=== PATIENT | male | born 1950 | race Caucasian/White ===

== ENCOUNTER 2023-03-14 13:12 | Emergency (ER) | payer MEDICARE, SELFPAY ==
[2023-03-14 13:18] VITALS: BP 113/74; PULSE 76; RESP 20; TEMP 37.1; O2SAT 97; BMI 30.1
--- NOTE | 2023-03-14 13:49 | CRLHL7_ITS ---
For Patients: As a result of the Century Cures Act, medical imaging exams and procedure reports are released immediately into your electronic medical record. You may view this report before your referring provider. If you have questions, please contact your health care provider. INDICATION: Suprapubic abdominal pain. Constipation. TECHNIQUE: CT abdomen and pelvis acquired with 100 cc Omnipaque 350 IV contrast. COMPARISON: None. FINDINGS: Lower chest: Scattered atelectasis. Liver: Hepatic steatosis. No suspicious masses. Gallbladder and bile ducts: Cholecystectomy. Pancreas: Unremarkable. No mass or inflammation. Spleen: Unremarkable. Normal in size. No masses. Adrenal glands: Unremarkable. No nodules. Kidneys: Mild prominence of the left collecting system without obstructing stone. No suspicious masses, stones, or hydronephrosis. GI tract: Acute sigmoid diverticulitis. No bowel obstruction. Moderate colonic stool burden. Vasculature: Abdominal aorta is normal in caliber. Mesenteric arteries are patent. Lymph nodes: No lymphadenopathy. Peritoneum/Abdominal Wall: Unremarkable. No sign of mass or infiltration. No free air or significant free fluid. Pelvis: Mildly distended bladder with circumferential wall thickening. Bones: Unremarkable for age. IMPRESSION: Acute uncomplicated sigmoid diverticulitis. No drainable fluid collections Mild prominence of the left collecting system without obstructing stone, likely reactive in the setting of adjacent sigmoid diverticulitis. Mildly distended bladder with circumferential wall thickening, likely reactive. Recommend correlation with urinalysis. Moderate colonic stool burden. Please note that all CT scans at this facility use dose modulation, iterative reconstruction, and/or weight-based dosing when appropriate to reduce radiation dose to as low as reasonably achievable. Dictated by Avila Olson MD @ 03/14/2023 3:51:25 PM (Electronically Signed)
[2023-03-14 14:09] LABS: Fecal Occult Blood* Positive (Negative)
--- NOTE | 2023-03-14 14:14 | ED.NURSE ---
Patient refused triple swab.
[2023-03-14 14:26] LABS: Lactate* 0.8 mmol/L (0.5-1.9)
[2023-03-14 14:30] LABS: Basophils Absolute Auto 0.04 K/uL (0.00-0.30); Basophils Percent Auto 0.4 % (0.0-3.0); Eosinophils Absolute Auto 0.16 K/uL (0.00-0.50); Eosinophils Percent Auto 1.6 % (0.0-7.0); Hemoglobin* 14.4 gm/dL (13.5-17.5); Immature Granulocytes Abs Auto 0.01 K/uL (0.00-0.30); Immature Granulocytes Pct Auto 0.1 %; Lymphocytes Percent Auto 16.7 % (20-44); Mean Corpuscular HGB Conc 34 gm/dL (32-36); Mean Corpuscular Hemoglobin 30 pg (26-34); Mean Corpuscular Volume 88 fL (80-100); Monocytes Percent Auto 13.5 % (0.0-11.0); Neutrophils Absolute Auto 6.96 K/uL (1.7-7.0); Neutrophils Percent Auto 67.7 % (42.0-72.0); Platelet Count* 232 K/uL (140-440); RDW Coefficient of Variation % 12.2 % (11.5-15.5); Red Blood Count 4.88 m/uL (4.30-5.90); White Blood Count* 10.28 K/uL (4.50-11.00)
[2023-03-14 14:35] LABS: Slide Review Reflex No
[2023-03-14 14:44] LABS: Chloride* 104 mmol/L (96-114); Potassium* 3.9 mmol/L (3.6-5.1); Sodium* 137 mmol/L (135-149)
[2023-03-14 14:46] LABS: Albumin* 4.2 g/dL (3.3-5.0)
[2023-03-14] MEDS: 0.9 % SODIUM CHLORIDE 1000 ml 1,000 ML IV (14:46)
[2023-03-14 14:47] LABS: Amylase* 66 U/L (18-89); Anion Gap 7 mEq/L (7-15); Blood Urea Nitrogen* 15 mg/dL (7-30); Carbon Dioxide* 26 mmol/L (20-32); Creatinine* 0.8 mg/dL (0.5-1.5); Est. Creatinine Clearance* 68.94; Estimated Glomerular Filt Rate 94 ml/min
[2023-03-14 14:47] LABS: Appearance Urine Clear (Clear); Bilirubin Urine Negative (Negative); Blood Urine Negative (Negative); Color Urine Orange (Yellow); Glucose Urine Negative (Negative); Ketones Urine Negative (Negative); Leukocyte Esterase Urine Negative (Negative); Nitrite Urine Negative (Negative); Protein Urine Negative (Negative); Specific Gravity Urine 1.025 (1.000-1.030); Urobilinogen Urine 0.2 (0.2-1.0)
[2023-03-14 14:48] LABS: Calcium* 9.1 mg/dL (8.4-10.6); Glucose* 100 mg/dL (60-115)
[2023-03-14 14:49] LABS: Alanine Aminotransferase* 23 U/L (4-50); Alkaline Phosphatase* 71 U/L (40-150); Aspartate Amino Transferase* 27 U/L (12-35); Bilirubin Direct* 0.2 mg/dL (0.0-0.5); Bilirubin Total* 1.3 mg/dL (0.1-1.5); Lipase* 59 U/L (23-300)
[2023-03-14 14:50] LABS: C Reactive Protein* 7.4 mg/dL (0.5-1.0)
[2023-03-14 15:04] LABS: RBC Urine 0-2 (0-2); Squamous Epithelial Cell Urine Few (None-Few); WBC Urine 0-2 (0-5)
[2023-03-14 15:05] LABS: Procalcitonin* 0.07 ng/mL (<0.50)
--- NOTE | 2023-03-14 15:14 | ED.ABDPAIN ---
HPI - Abdominal Pain General Date Seen: 03/14/23 Chief Complaint: Constipation Stated Complaint: Bowel clrcro-hqdyjkq-diai bm 3 days ago Time Seen by Provider: 03/14/23 13:31 Source: patient and family Mode of arrival: ambulatory Limitations: no limitations History of Present Illness HPI narrative: Patient is a 73-year-old gentleman who presents here with abdominal fullness and discomfort for the last for 4-5 days he describes as suprapubic re area. He has been passing some gas slightly, but not on a consistent basis is wondering if he has any constipation despite having no history of this in the past. He does get yearly fecal testing for screening. But they were unable to do colonoscopy is due very tight colon at [facility]. No history of cancer, does have a history of a previous cholecystectomy done laparoscopically here at our institution. No history of fevers chills or sweats, he is eating a little bit less but eating still no history of cough cold-like symptoms weight loss, or personal history of malignancy he comes in with his daughter. Does not drink a lot of alcohol if any. [place] in [place] MD elicited complaint: abdominal pain Pertinent past history: none Onset (ago): day(s) Location: suprapubic Severity: moderate Quality: fullness Migration to: no migration Exacerbating factors: nothing Relieving factors: nothing Associated symptoms: denies other symptoms Related Data Allergies Allergy/AdvReac Type Severity Reaction Status Date / Time No Known Drug Allergies Allergy Verified 03/14/23 15:21 Review of Systems Status of ROS Reports: 10 or more systems reviewed and unremarkable except as noted in History and below PFSH PFSH Social History Non-prescribed substance use: denies use Exam Narrative: Exam Narrative: On examination patient is in no apparent distress he is pleasant alert he is able to speak to me normally, pupils equal round reactive to light there is no scleral icterus redness TMs are normal oropharynx normal there is no adenopathy anterior posterior chains his neck is supple full range of motion is listed oropharynx is normal, chest is good air entry bilateral with no wheezing crackles noted heart sounds no clicks murmurs or gallops his abdomen is full and slightly distended, no peritoneal signs some mild tenderness is noted the suprapubic, bilaterally in the lower quadrants, normal male genitalia, no evidence of hernias, moves all extremities independently well neurologically intact his upper lower extremities skin reveals no petechiae rashes, muscle bulk seems adequate. Const: Vital Signs, click to edit/add: Vital Signs - 24 hr 03/14/23 13:18 Temperature 98.8 F Pulse Rate [Pulse Oximeter] 76 Respiratory Rate 20 Blood Pressure [Ri ght Upper Arm] 113/74 Pulse Oximetry 97 Oxygen Delivery Me thod Room Air Documenting provider has reviewed patient's vital signs: yes Course Course ED Course: Discussed with patient family, the diagnosis diverticulitis, it is uncomplicated no evidence of perforation abscess is seen, we went over the risks benefits and side effects of antibiotics, given it is the 1st time, he is fairly symptomatic I would recommend going without antibiotics here. Use of Tylenol for the discomfort and come back if worsening, follow-up primary care in 10 days. Vital Signs Vital signs: Initial Vital Signs Temperature 98.8 F 03/14/23 13:18 Temperature Source Temporal Artery Scan 03/14/23 13:18 Pulse Rate 76 03/14/23 13:18 Respiratory Rate 20 03/14/23 13:18 Blood Pressure 113/74 03/14/23 13:18 Blood Pressure Mean 87 03/14/23 13:18 Pulse Oximetry 97 03/14/23 13:18 Oxygen Delivery Method Room Air 03/14/23 13:18 Vital Signs Temperature 98.8 F 03/14/23 13:18 Pulse Rate 76 03/14/23 13:18 Respiratory Rate 20 03/14/23 13:18 Blood Pressure 113/74 03/14/23 13:18 Pulse Oximetry 97 03/14/23 13:18 Oxygen Delivery Method Room Air 03/14/23 13:18 Temperature 98.8 F 03/14/23 13:18 Pulse Rate 76 03/14/23 13:18 Respiratory Rate 20 03/14/23 13:18 Blood Pressure 113/74 03/14/23 13:18 Pulse Oximetry 97 03/14/23 13:18 Oxygen Delivery Method Room Air 03/14/23 13:18 Medications Administered Medications: Discontinued Medications Generic Name Dose Route Start Last Admin Trade Name Freq PRN Reason Stop Dose Admin Sodium Chloride 1,000 mls @ 1,000 mls/hr 03/14/23 14:00 03/14/23 16:07 0.9 % Sodium Chloride 1000 Ml IV 03/14/23 14:59 Infused .Q1H GAURANG Infusion MDM - Abdominal Pain MDM Narrative Medical decision making narrative: During this evaluation of this patient I considered multiple differential diagnosis is which included the life-threatening such as appendicitis, aortic aneurysm, mesenteric ischemia, bowel perforation, volvulus, and bowel obstruction. Other differential diagnosis is include but are not limited to cholecystitis, pancreatitis, hepatitis, gastritis, GERD, diverticulitis, peptic ulcer disease, pyelonephritis/UTI, renal colic/stone, testicular torsion as well as other acute scrotal processes, inflammatory bowel disease, as well as other etiologies Medical Records Attestation: I reviewed the patient's medical records. Lab Data Attestation: I reviewed the patient's lab results. Labs: Lab Results 03/14/23 03/14/23 03/14/23 Range/Units 14:10 14:21 Unknown WBC 10.28 (4.50-11.00) K/uL RBC 4.88 (4.30-5.90) m/uL Hgb 14.4 (13.5-17.5) gm/dL Hct 43.0 (37.0-53.0) % MCV 88 (80-100) fL MCH 30 (26-34) pg MCHC 34 (32-36) gm/dL RDW Coeff of [place] 12.2 (11.5-15.5) % Plt Count 232 (140-440) K/uL Neut % (Auto) 67.7 (42.0-72.0) % Lymph % (Auto) 16.7 L (20-44) % [place] % (Auto) 13.5 H (0.0-11.0) % Eos % (Auto) 1.6 (0.0-7.0) % Baso % (Auto) 0.4 (0.0-3.0) % Neut # (Auto) 6.96 (1.7-7.0) K/uL Lymph # (Auto) 1.70 (0.90-2.90) K/uL [place] # (Auto) 1.40 H (0.00-0.90) K/UL Eos # (Auto) 0.16 (0.00-0.50) K/uL Baso # (Auto) 0.04 (0.00-0.30) K/uL Abs Immat Gran (auto) 0.01 (0.00-0.30) K/uL Imm/Tot Granulo (auto) 0.1 % Sodium 137 (135-149) mmol/L Potassium 3.9 (3.6-5.1) mmol/L Chloride 104 (96-114) mmol/L Carbon Dioxide 26 (20-32) mmol/L Anion Gap 7 (7-15) mEq/L BUN 15 (7-30) mg/dL Creatinine 0.8 (0.5-1.5) mg/dL Estimated Creat Clear 68.94 Estimated GFR 94 ml/min Glucose 100 (60-115) mg/dL Lactate 0.8 (0.5-1.9) mmol/L Calcium 9.1 (8.4-10.6) mg/dL Total Bilirubin 1.3 (0.1-1.5) mg/dL Direct Bilirubin 0.2 (0.0-0.5) mg/dL AST 27 (12-35) U/L ALT 23 (4-50) U/L Alkaline Phosphatase 71 (40-150) U/L C-Reactive Protein 7.4 H (0.5-1.0) mg/dL Total Protein 7.0 (6.0-8.3) g/dL Albumin 4.2 (3.3-5.0) g/dL Amylase 66 (18-89) U/L Lipase 59 (23-300) U/L Procalcitonin 0.07 (<0.50) ng/mL Urine Color [place] A (Yellow) Urine Appearance Clear (Clear) Urine pH 6.0 (5.0-8.5) Ur Specific [place] 1.025 (1.000-1.030) Urine Protein Negative (Negative) Urine Glucose (UA) Negative (Negative) Urine Ketones Negative (Negative) Urine Blood Negative (Negative) Urine Nitrite Negative (Negative) Urine Bilirubin Negative (Negative) Urine Urobilinogen 0.2 (0.2-1.0) Ur Leukocyte Esterase Negative (Negative) Urine RBC 0-2 (0-2) Urine WBC 0-2 (0-5) Ur Squamous Epith Cells Few (None-Few) Urine Bacteria None (None) Stool Occult Blood Positive (Negative) Imaging Data CT scan - abdomen: Attestation: I have reviewed the pertinent imaging results. My impression: Sigmoid diverticulitis without perforation or abscess Radiologist's impression: Patient: JACOB FLYNN Facility:[facility] Patient ID:?[id number] Site Patient ID:?[id number]. Site :?[id number] Study:?CT Abdomen/Pelvis W/ 103CC [id number]/1/2024 3:30:53 PM Ordering Physician:Lali Martinez Final Report: INDICATION: Suprapubic abdominal pain. Constipation. TECHNIQUE: CT abdomen and pelvis acquired with 100 cc Omnipaque 350 IV contrast. COMPARISON: None. FINDINGS: Lower chest: Scattered atelectasis. Liver: Hepatic steatosis. No suspicious masses. Gallbladder and bile ducts: Cholecystectomy. Pancreas: Unremarkable. No mass or inflammation. Spleen: Unremarkable. Normal in size. No masses. Adrenal glands: Unremarkable. No nodules. Kidneys: Mild prominence of the left collecting system without obstructing stone. No suspicious masses, stones, or hydronephrosis. GI tract: Acute sigmoid diverticulitis. No bowel obstruction. Moderate colonic stool burden. Vasculature: Abdominal aorta is normal in caliber. Mesenteric arteries are patent. Lymph nodes: No lymphadenopathy. Peritoneum/Abdominal Wall: Unremarkable. No sign of mass or infiltration. No free air or significant free fluid. Pelvis: Mildly distended bladder with circumferential wall thickening. Bones: Unremarkable for age. IMPRESSION: Acute uncomplicated sigmoid diverticulitis. No drainable fluid collections Mild prominence of the left collecting system without obstructing stone, likely reactive in the setting of adjacent sigmoid diverticulitis. Mildly distended bladder with circumferential wall thickening, likely reactive. Recommend correlation with urinalysis. Moderate colonic stool burden. Please note that all CT scans at this facility use dose modulation, iterative reconstruction, and/or weight-based dosing when appropriate to reduce radiation dose to as low as reasonably achievable. Dictated by Avila Olson MD @ 03/14/2023 3:51:25 PM (Electronic Signature) Discharge Plan Discharge Clinical Impression: Diverticulitis Patient Disposition: Home w/ Parent or Adult Condition: Stable Instructions: Diverticulitis (DC), Diverticulitis Diet (ED) Additional Instructions: Home rest antibiotics is indicated, Tylenol 1 g 2 extra-strength every 8 hours, for pain, increase diet, start with fluids, soup, yogurt and then increase slowly over 4-5 days, return here if increasing abdominal pain fevers chills nausea vomiting. I think following up with your regular physician once her antibiotics is done is a good idea to talk about this also. Activity Level: Light activity Discharge Diet: Full Liquid Follow Up/Referrals: Daron Keane MD [Staff Physician] - Silvano Lindsay MD [Staff Physician] - Gabriella Tuttle DO [Primary Care Provider] - Stand Alone Forms: [employer] Info Instructions
== END 2023-03-14 16:41 | disposition home or self-care (01) ==
PROVIDERS: Emergency Provider Family Medicine; PCP Family Medicine
DX: K57.92 Diverticulitis of intestine, part unspecified, without perforation or abscess without bleeding (principal)
CPT/HCPCS: 36415; 74177; 80048; 80076; 81001; 82150; 82270; 83605; 83690; 84145; 85025; 86140; 87631; 99284; J7030; Q9967

== ENCOUNTER 2023-03-24 16:14 | Emergency (ER) | payer MEDICARE, SELFPAY ==
[2023-03-24 16:18] VITALS: BP 130/74; PULSE 56; RESP 18; TEMP 36.3; O2SAT 97
--- NOTE | 2023-03-24 17:24 | ED_ITS ---
HPI - Abdominal Pain General Time Seen by Provider: 17:25 Date Seen: 03/24/23 Chief Complaint: Abdominal Pain Stated Complaint: Diverticulitis diagnosis-meds gone and pain back Time Seen by Provider: 03/24/23 17:24 Source: patient and RN notes reviewed Mode of arrival: ambulatory Limitations: no limitations History of Present Illness HPI narrative: This 73-year-old male is coming in with worsening left lower quadrant abdominal pain since last night in the setting of known diverticulitis. Patient was in the ER on March 14, his note is reviewed. He had CT confirmed acute uncomplicated sigmoid diverticulitis. There was no abscess or fluid collections noted. [place] [address], C reactive protein 7.4. He was treated with Augmentin, completed his last dose this morning. He is still eating, no change in appetite, no nausea or vomiting. Throughout the course of treatment his bowel habits were pretty much normal. This morning after the pain returned, did have 2 smaller bowel movements that seemed like they were difficult to pass. He denies any blood in his stool. This is his 1st episode of diverticulitis. He has not noted any fevers or sweats , no chills. MD elicited complaint: abdominal pain Pertinent past history: diverticulitis Related Data Previous Rx's Medication Instructions Recorded ciprofloxacin HCl 500 mg tablet 250 mg (1/2 x 500 mg) PO BID #19 03/24/23 tabs metronidazole 500 mg tablet 500 mg PO TID #29 tabs 03/24/23 Allergies Allergy/AdvReac Type Severity Reaction Status Date / Time No Known Drug Allergies Allergy Verified 03/24/23 16:21 Review of Systems Status of ROS Reports: 6 or more systems reviewed and unremarkable except as noted in History and below PFSH PFS Social History Non-prescribed substance use: denies use Exam Const: Vital Signs, click to edit/add: Vital Signs - 24 hr 03/24/23 16:18 Temperature 97.4 F L Pulse Rate [Pulse Oximeter] 56 L Respiratory Rate 18 Blood Pressure [Ri ght Upper Arm] 130/74 Pulse Oximetry 97 Oxygen Delivery Me thod Room Air This 73-year-old male is ambulatory into the ED of his own accord. He is alert, interactive, no apparent distress. Sclera clear, face atraumatic, able speak in complete sentences. Lungs are clear without wheeze or crackles. CV regular rate and rhythm no murmur, normal S1-S2, no S3-S4. Abdomen is soft, nondistended, bowel sounds are present. He has definite left lower quadrant tenderness with some guarding, no noted rebound. I do not feel any mass. Documenting provider has reviewed patient's vital signs: yes Course Course ED Course: Patient is and I have discussed plan of care. He obviously needs imaging done of his abdomen looking for complications of diverticulitis. We have discussed that perhaps the course of oral antibiotics was not sufficient, he could have developed complications such as perforation or abscess development. It is possible he may need a change of antibiotics and extended antibiotics with a different course. we will place an IV, give 500 mL normal saline to help with hydration from the IV contrast. He will have appropriate labs drawn as well for comparison from prior. He denies any nausea at this time, declines any need for any pain management. Reevaluation(s) Time of Reevaluation #1: 19:19 Reevaluation #1: have reviewed with patient and his his CT scan. Interestingly he has a new area of acute uncomplicated diverticulitis of the proximal sigmoid colon. There is no evidence of perforation or abscess. The previously seen inflammation the mid sigmoid colon has near complete resolution of inflammation, still mild residual wall thickening in this region. Reviewed with him that I recommend we switch to Cipro and Flagyl orally. I do not think he requires hospitalization based on his presentation, labs and CT findings. We discussed having colonoscopy in 6-8 weeks when this is completely resolved, he shared with me that he was told by [facility] that he should never have a colonoscopy. He has a history of acromegaly and reportedly had changed architecture of his colon. He states that the turns were very tight, they almost perforated his colon per report. Did review with him with this information, would recommend he be referred to Colorectal or GI specialist, there are other imaging modalities such as CT colonoscopy which could be considered. Ultimately defer to specialty services on this. He does have an appointment next week for follow-up with Dr. Lindsay, he should keep this and he can get him referred appropriately. Vital Signs Vital signs: Initial Vital Signs Temperature 97.4 F L 03/24/23 16:18 Temperature Source Temporal Artery Scan 03/24/23 16:18 Pulse Rate 56 L 03/24/23 16:18 Pulse Rhythm Regular 03/24/23 16:18 Respiratory Rate 18 03/24/23 16:18 Blood Pressure 130/74 03/24/23 16:18 Blood Pressure Mean 92 03/24/23 16:18 Blood Pressure Position Sitting 03/24/23 16:18 Pulse Oximetry 97 03/24/23 16:18 Oxygen Delivery Method Room Air 03/24/23 16:18 Vital Signs Temperature 97.4 F L 03/24/23 16:18 Pulse Rate 56 L 03/24/23 16:18 Respiratory Rate 18 03/24/23 16:18 Blood Pressure 130/74 03/24/23 16:18 Pulse Oximetry 97 03/24/23 16:18 Oxygen Delivery Method Room Air 03/24/23 16:18 Temperature 97.4 F L 03/24/23 16:18 Pulse Rate 56 L 03/24/23 16:18 Respiratory Rate 18 03/24/23 16:18 Blood Pressure 130/74 03/24/23 16:18 Pulse Oximetry 97 03/24/23 16:18 Oxygen Delivery Method Room Air 03/24/23 16:18 MDM - Abdominal Pain Differential Diagnosis Differential diagnosis: Likely abdominal pain and diverticulitis Lab Data Attestation: I reviewed the patient's lab results. Labs: Lab Results 03/24/23 Range/Units 18:00 WBC 10.64 (4.50-11.00) K/uL RBC 4.98 (4.30-5.90) m/uL Hgb 14.5 (13.5-17.5) gm/dL Hct 43.9 (37.0-53.0) % MCV 88 (80-100) fL MCH 29 (26-34) pg MCHC 33 (32-36) gm/dL RDW Coeff of [place] 12.3 (11.5-15.5) % Plt Count 267 (140-440) K/uL Neut % (Auto) 68.9 (42.0-72.0) % Lymph % (Auto) 18.1 L (20-44) % [place] % (Auto) 9.1 (0.0-11.0) % Eos % (Auto) 3.3 (0.0-7.0) % Baso % (Auto) 0.5 (0.0-3.0) % Neut # (Auto) 7.33 H (1.7-7.0) K/uL Lymph # (Auto) 1.90 (0.90-2.90) K/uL [place] # (Auto) 1.00 H (0.00-0.90) K/UL Eos # (Auto) 0.35 (0.00-0.50) K/uL Baso # (Auto) 0.05 (0.00-0.30) K/uL Abs Immat Gran (auto) 0.01 (0.00-0.30) K/uL Imm/Tot Granulo (auto) 0.1 % Sodium 140 (135-149) mmol/L Potassium 4.2 (3.6-5.1) mmol/L Chloride 105 (96-114) mmol/L Carbon Dioxide 27 (20-32) mmol/L Anion Gap 8 (7-15) mEq/L BUN 15 (7-30) mg/dL Creatinine 0.9 (0.5-1.5) mg/dL Estimated GFR 91 ml/min Glucose 95 (60-115) mg/dL Lactate 0.8 (0.5-1.9) mmol/L Calcium 9.4 (8.4-10.6) mg/dL C-Reactive Protein 5.0 H (0.5-1.0) mg/dL Imaging Data CT scan - abdomen: Attestation: I have reviewed the pertinent imaging results. Radiologist's impression: Patient: JACOB FLYNN Facility:?[facility] Patient ID:?[id number] Site Patient ID:?[id number]. Site :?[id number] Study:?CT Abdomen/Pelvis W/IV-03/24/2023 6:18:52 PM Ordering Physician:?Eddy Kolb Final Report: INDICATION: Worsening pain with known diverticulitis. TECHNIQUE: CT of the abdomen and pelvis acquired with 98 cc Isovue 370 IV contrast. Coronal and sagittal reconstructions. COMPARISON: CT of the abdomen and pelvis 03/14/2023. FINDINGS: Liver: Diffuse hepatic steatosis. No focal liver lesions. Hepatic and portal veins are patent. Gallbladder and bile ducts: Cholecystectomy. No biliary dilation. Spleen: Unremarkable. Pancreas: Unremarkable. Adrenal glands: Unremarkable. Kidneys, Ureters, and Bladder: Symmetric enhancement. Subcentimeter hypodensity in the lower pole of the left kidney is too small to characterize. No right hydronephrosis or ureteral dilation. Stable mild left renal pelvocaliectasis. No dilation of the left ureter. No obstructing urinary calculi identified. No bladder wall thickening. Reproductive structures: Nonenlarged prostate gland with calcifications. GI tract/Peritoneum: No small bowel dilation. Moderate amount of stool throughout the colon. Colonic diverticulosis. Near complete resolution of previously seen inflammation in the mid sigmoid colon, with mild residual wall thickening in this region. There is new short-segment wall thickening of the proximal sigmoid colon with surrounding inflammatory fat stranding compatible with acute diverticulitis. Trace free fluid in the pelvis. No intraperitoneal free air or evidence of abscess. Negative appendix. Vasculature: Abdominal aorta is normal in caliber. Mesenteric arteries are patent. Lymph nodes: No lymphadenopathy. Abdominal wall: Tiny fat containing umbilical hernia. Bones: Degenerative changes of the spine. 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 Lower chest: Stable 3 mm noncalcified pulmonary nodule in the posterior right lower lobe (series 3, image 17). Calcified granuloma posteromedial left lower lobe. The lung bases are otherwise clear. IMPRESSION: 1. Acute uncomplicated diverticulitis of the proximal sigmoid colon. This is a new location compared to prior exam. No evidence of perforation or abscess. 2. Near complete resolution of previously seen inflammation in the mid sigmoid colon. 3. Stable mild left renal pelvocaliectasis without obstructing calculi. 4. Diffuse hepatic steatosis. Please note that all CT scans at this facility use dose modulation, iterative reconstruction, and/or weight-based dosing when appropriate to reduce radiation dose to as low as reasonably achievable. Dictated by Maggy Fatima MD @ 03/24/2023 7:02:44 PM (Electronic Signature) Discharge Plan Discharge Clinical Impression: Sigmoid diverticulitis Patient Disposition: Home, Self-Care Condition: Stable Instructions: Diverticulitis (ED), Diverticulitis Diet (ED) Additional Instructions: continue antibiotics, next dose due tomorrow morning, follow-up prescription instructions. If you develop increasing abdominal pain, have fevers or vomiting associated with this, do need to be re-evaluated. Follow the diverticulitis diet handout in the acute phase of your diverticulitis. Please keep follow-up clinic appointment scheduled for next week. You are likely going to need to be referred to a specialist given your history of failed colonoscopy. Can talk to Dr. Lindsay further about this. Activity Level: Activity as Tolerated Prescriptions: New ciprofloxacin HCl 500 mg tablet 250 mg PO BID Qty: 19 0RF metronidazole 500 mg tablet 500 mg PO TID Qty: 29 0RF Follow Up/Referrals: Gabriella Tuttle DO [Primary Care Provider] - Stand Alone Forms: [employer] Info Instructions
--- NOTE | 2023-03-24 17:34 | CRLHL7_ITS ---
For Patients: As a result of the Century Cures Act, medical imaging exams and procedure reports are released immediately into your electronic medical record. You may view this report before your referring provider. If you have questions, please contact your health care provider. INDICATION: Worsening pain with known diverticulitis. TECHNIQUE: CT of the abdomen and pelvis acquired with 98 cc Isovue 370 IV contrast. Coronal and sagittal reconstructions. COMPARISON: CT of the abdomen and pelvis 03/14/2023. FINDINGS: Liver: Diffuse hepatic steatosis. No focal liver lesions. Hepatic and portal veins are patent. Gallbladder and bile ducts: Cholecystectomy. No biliary dilation. Spleen: Unremarkable. Pancreas: Unremarkable. Adrenal glands: Unremarkable. Kidneys, Ureters, and Bladder: Symmetric enhancement. Subcentimeter hypodensity in the lower pole of the left kidney is too small to characterize. No right hydronephrosis or ureteral dilation. Stable mild left renal pelvocaliectasis. No dilation of the left ureter. No obstructing urinary calculi identified. No bladder wall thickening. Reproductive structures: Nonenlarged prostate gland with calcifications. GI tract/Peritoneum: No small bowel dilation. Moderate amount of stool throughout the colon. Colonic diverticulosis. Near complete resolution of previously seen inflammation in the mid sigmoid colon, with mild residual wall thickening in this region. There is new short-segment wall thickening of the proximal sigmoid colon with surrounding inflammatory fat stranding compatible with acute diverticulitis. Trace free fluid in the pelvis. No intraperitoneal free air or evidence of abscess. Negative appendix. Vasculature: Abdominal aorta is normal in caliber. Mesenteric arteries are patent. Lymph nodes: No lymphadenopathy. Abdominal wall: Tiny fat containing umbilical hernia. Bones: Degenerative changes of the spine. 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 Lower chest: Stable 3 mm noncalcified pulmonary nodule in the posterior right lower lobe (series 3, image 17). Calcified granuloma posteromedial left lower lobe. The lung bases are otherwise clear. IMPRESSION: 1. Acute uncomplicated diverticulitis of the proximal sigmoid colon. This is a new location compared to prior exam. No evidence of perforation or abscess. 2. Near complete resolution of previously seen inflammation in the mid sigmoid colon. 3. Stable mild left renal pelvocaliectasis without obstructing calculi. 4. Diffuse hepatic steatosis. Please note that all CT scans at this facility use dose modulation, iterative reconstruction, and/or weight-based dosing when appropriate to reduce radiation dose to as low as reasonably achievable. Dictated by Maggy Fatima MD @ 03/24/2023 7:02:44 PM (Electronically Signed)
[2023-03-24] MEDS: 0.9 % SODIUM CHLORIDE 500 ML 500 ML IV (17:52)
[2023-03-24 18:08] LABS: Lactate* 0.8 mmol/L (0.5-1.9)
[2023-03-24 18:12] LABS: Basophils Absolute Auto 0.05 K/uL (0.00-0.30); Basophils Percent Auto 0.5 % (0.0-3.0); Eosinophils Absolute Auto 0.35 K/uL (0.00-0.50); Eosinophils Percent Auto 3.3 % (0.0-7.0); Hematocrit 43.9 % (37.0-53.0); Hemoglobin* 14.5 gm/dL (13.5-17.5); Immature Granulocytes Abs Auto 0.01 K/uL (0.00-0.30); Immature Granulocytes Pct Auto 0.1 %; Lymphocytes Percent Auto 18.1 % (20-44); Mean Corpuscular HGB Conc 33 gm/dL (32-36); Mean Corpuscular Hemoglobin 29 pg (26-34); Mean Corpuscular Volume 88 fL (80-100); Monocytes Percent Auto 9.1 % (0.0-11.0); Neutrophils Absolute Auto 7.33 K/uL (1.7-7.0); Neutrophils Percent Auto 68.9 % (42.0-72.0); Platelet Count* 267 K/uL (140-440); RDW Coefficient of Variation % 12.3 % (11.5-15.5); Red Blood Count 4.98 m/uL (4.30-5.90); White Blood Count* 10.64 K/uL (4.50-11.00)
[2023-03-24 18:24] LABS: Slide Review Reflex No
[2023-03-24 18:25] LABS: Chloride* 105 mmol/L (96-114); Potassium* 4.2 mmol/L (3.6-5.1); Sodium* 140 mmol/L (135-149)
[2023-03-24 18:27] VITALS: PULSE 50; O2SAT 98
[2023-03-24 18:27] LABS: Creatinine* 0.9 mg/dL (0.5-1.5); Estimated Glomerular Filt Rate 91 ml/min
[2023-03-24 18:28] LABS: Anion Gap 8 mEq/L (7-15); Blood Urea Nitrogen* 15 mg/dL (7-30); Calcium* 9.4 mg/dL (8.4-10.6); Carbon Dioxide* 27 mmol/L (20-32); Glucose* 95 mg/dL (60-115)
[2023-03-24 18:30] VITALS: PULSE 50; O2SAT 99
[2023-03-24 18:45] VITALS: PULSE 56; O2SAT 97
[2023-03-24] MEDS: CIPROFLOXACIN 500 MG TABLET PO (19:34)
[2023-03-24] MEDS: metroNIDAZOLE 500 MG TABLET PO (19:34)
== END 2023-03-24 19:48 | disposition home or self-care (01) ==
PROVIDERS: Emergency Provider Family Medicine; PCP Family Medicine
DX: K57.32 Diverticulitis of large intestine without perforation or abscess without bleeding (principal)
CPT/HCPCS: 36415; 74177; 80048; 83605; 85025; 86140; 94761; 99284; A9270; J7030; Q9967

== ENCOUNTER 2023-05-24 08:06 | Outpatient (CLI) | payer MEDICARE, SELFPAY | END 2023-05-24 08:07 | disposition home or self-care (01) | LOC: NFLDREF 06-06 07:11 | PROVIDERS: PCP Family Medicine; Referring Provider Family Medicine; Visit Provider Family Medicine | DX: E78.2 Mixed hyperlipidemia (principal); Z12.5 Encounter for screening for malignant neoplasm of prostate | CPT/HCPCS: 80061; G0103 ==

== ENCOUNTER 2023-08-21 03:30 | Emergency (ER) | payer MEDICARE, SELFPAY ==
[2023-08-21 03:38] VITALS: BP 156/80; PULSE 54; RESP 16; TEMP 36.5; O2SAT 96; BMI 30.9
--- NOTE | 2023-08-21 04:21 | CRLHL7_ITS ---
For Patients: As a result of the Century Cures Act, medical imaging exams and procedure reports are released immediately into your electronic medical record. You may view this report before your referring provider. If you have questions, please contact your health care provider. Indication: Left-sided abdominal pain, history of sigmoid diverticulitis Technique: Volumetric multidetector CT images of the abdomen and pelvis were obtained after the administration of intravenous contrast. 103 cc Isovue 370 low osmolar intravenous contrast Comparison: None available. Findings: There is basilar atelectasis and parenchymal scar. The liver is enlarged with moderate hepatomegaly and hepatic steatosis. There is no focal abnormality. The portal vein is patent. Prior cholecystectomy. There is no significant common biliary ductal dilatation or abrupt cut off. The spleen is normal in enhancement and size. The stomach and duodenum are grossly unremarkable. The pancreas is normal in enhancement without significant atrophy. The adrenal glands are unremarkable. There is left-sided hydronephrosis and hydroureter with demonstration of focal radiopaque likely faintly calcified calculus just at the ureteropelvic junction measuring up to 6.9 millimeters. No evidence of obvious distal radiopaque calculus. There is moderate stool seen throughout the proximal colon with distal colonic diverticulosis. There is a decompressed appearance of the distal descending and proximal sigmoid colon which may obscure subtle inflammatory changes. No overt pericolonic inflammation is identified. The appendix is unremarkable. There is no significant mesenteric, retroperitoneal, or pelvic sidewall lymph nodes. The aorta is nonaneurysmal. There is no significant atherosclerotic disease appreciated. The solid pelvic viscera are grossly unremarkable. There is no free fluid or free air. There is a small fat containing umbilical hernia. The lumbar vertebral body heights are grossly maintained with mild multilevel degenerative disc disease. There is trace anterolisthesis of L5 on S1. Impression: Left-sided hydronephrosis with demonstration of a 6.9 millimeter faintly calcified calculus just at the left ureteropelvic junction. Distal colonic diverticulosis with somewhat decompressed appearance of the colon which may obscure low-grade inflammatory change. Double Hepatomegaly and hepatic steatosis without focal abnormality. Please note that all CT scans at this facility use dose modulation, iterative reconstruction, and/or weight-based dosing when appropriate to reduce radiation dose to as low as reasonably achievable. Dictated by Garry Pulliam MD @ 08/21/2023 5:58:50 AM (Electronically Signed)
--- NOTE | 2023-08-21 04:24 | ED_ITS ---
HPI - General Adult General Chief complaint: Abdominal Pain Stated complaint: Not feeling well Time Seen by Provider: 08/21/23 03:54 Source: patient and family Mode of arrival: ambulatory Limitations: no limitations History of Present Illness HPI narrative: 73-year-old male with prior history of diverticulitis presents to the emergency department with left upper quadrant abdominal pain that radiates into the left posterior back. No fevers. No obvious trauma or injury but states that he was pulling a difficult calf from have for with Ruthann presentations this afternoon but did not have any fall or abdominal trauma with that exertion. Pain seemed to start mid afternoon, he tried taking 2 aspirin at around 6:00 p.m. with no significant improvement. His pain is worsening, unable to sleep. He is nauseated but has not had vomiting. Bowel movements have been regular, no bloody stools. Reports that he had an episode of diverticulitis back in March and did have a subsequent colonoscopy this April and states that that was normal. Reports an uncomplicated cholecystectomy 2 years ago but no other abdominal surgeries. No fever associated with this. No recent changes in medications, pertinent travel. ROS is notable for the abdominal symptoms as described above only, otherwise denies times 12 systems. Past medical history benign per his report, no major long-term health problems or prescription medications. Was told he had a left bundle branch block at the time of the colonoscopy but denies need for further follow-up. Nonsmoker. No anticoagulants. Related Data Home Medications ?Medication ?Instructions ?Recorded ?Confirmed cholecalciferol (vitamin D3) 50 2,000 unit PO DAILY 03/30/23 05/16/23 mcg (2,000 unit) tablet NAC+zinc K2+D3 quercetain & PO QDAY 05/16/23 05/16/23 sarracenia fluticasone propionate 50 1 spray intranasal QDAY PRN 05/16/23 05/16/23 mcg/actuation nasal spray,suspension mv-mn-folic 200 mcg-vit K 15 cap PO 05/16/23 05/16/23 mcg-lutein 5 mg-zeaxanthin 1 mg capsule (PreserVision AREDS 2 Plus Multivit) olopatadine 0.2 % eye drops 1 drp ophthalmic (eye) QDAY 05/16/23 05/16/23 (Pataday Once Daily Relief) ec-[id number]-fish oil-vit D3 300 cap PO 05/16/23 05/16/23 mg-1,000 mg-1,000 unit capsule (Fish Oil-Vit D3) Previous Rx's ?Medication ?Instructions ?Recorded ketorolac 10 mg tablet 10 mg PO Q6H PRN pain 1 day #20 08/21/23 tabs tamsulosin 0.4 mg capsule (Flomax) 0.4 mg PO DAILY #30 caps 08/21/23 Allergies Allergy/AdvReac Type Severity Reaction Status Date / Time morphine Allergy Unknown Vomiting Verified 08/21/23 05:28 Opioids - Morphine Analogues Allergy Unknown Vomiting Verified 08/21/23 05:28 [facility] Medical History History of TIA (transient ischemic attack) ?Z86.73 - Personal history of transient ischemic attack (TIA), and cerebral infarction without residual deficits (ICD-10) History of melanoma ?Z85.820 - Personal history of malignant melanoma of skin (ICD-10) Sigmoid diverticulitis (03/14/23) ?K57.32 - Diverticulitis of large intestine without perforation or abscess without bleeding (ICD-10) Hearing loss of both ears ?H91.93 - Unspecified hearing loss, bilateral (ICD-10) Macular degeneration ?H35.30 - Unspecified macular degeneration (ICD-10) History of vitamin D deficiency ?Z86.39 - Personal history of other endocrine, nutritional and metabolic disease (ICD-10) Mixed hyperlipidemia ?E78.2 - Mixed hyperlipidemia (ICD-10) Hepatic steatosis ?K76.0 - Fatty (change of) liver, not elsewhere classified (ICD-10) ANTHONY (obstructive sleep apnea) ?G47.33 - Obstructive sleep apnea (adult) (pediatric) (ICD-10) BPH (benign prostatic hyperplasia) ?N40.0 - Benign prostatic hyperplasia without lower urinary tract symptoms (ICD-10) Acromegaly ?E22.0 - Acromegaly and pituitary gigantism (ICD-10) Surgical History History of pituitary surgery (1978) ?Z98.890 - Other specified postprocedural states (ICD-10) Hx laparoscopic cholecystectomy (07/16/21) ?Z90.49 - Acquired absence of other specified parts of digestive tract (ICD- 10) Social History Narrative: , nonsmoker Non-prescribed substance use: denies use Little interest or pleasure in doing things: several days Feeling down, depressed, or hopeless: not at all Exam Const: Vital Signs, click to edit/add: Vital Signs - 24 hr 08/21/23 03:38 08/21/23 04:39 08/21/23 05:01 Temperature 97.7 F Pulse Rate 43 L Pulse Rate [Pulse Oximeter] 54 L Respiratory Rate 16 20 Blood Pressure 119/67 Blood Pressure [Ri ght Upper Arm] 156/80 H Pulse Oximetry 96 99 97 Oxygen Delivery Me thod Room Air Documenting provider has reviewed patient's vital signs: yes Common normals: no apparent distress General appearance: cooperative and well kempt HENMT: Common normals: normocephalic Head and scalp: normocephalic Face and sinus: normal facial exam Mouth: oral and palatal mucosa normal Eye: Common normals: conjunctivae normal General eye: normal appearance of both eyes Conjunctiva: conjunctiva(e) normal Neck & C-Spine: Common normals: no lymphadenopathy General: normal visual inspection Chest: Common normals: inspection of chest normal Resp: Common normals: normal respiratory effort, no use of accessory muscles and clear to auscultation bilaterally Effort & inspection: able to speak in complete sentences Auscultation: clear to auscultation bilaterally Cardio: Common normals: regular rate, regular rhythm, S1 normal heart sound, S2 normal heart sound and no murmurs Rate: regular rate Rhythm: regular rhythm Heart sounds: S1 normal and S2 normal GI: Other: Appears mildly distended. Bowel sounds are a bit hypoactive on the left. Tender to palpation of the entire left abdomen, mild guarding. No obvious mass. : Common normals: no CVA tenderness Bladder/kidney exam: no CVA tenderness Back & Pelvis: Common normals: no CVA tenderness Extremity: Common normals: normal to inspection, normal capillary refill and no pedal edema Psych: Common normals: speech normal Appearance: well kempt Attitude: engaged Activity/motor behavior: appropriate eye contact Speech: normal speech Insight: insight good Judgement: judgment good Skin: Common normals: no rashes or lesions noted General skin exam: no rashes or lesions noted Course Course ED Course: 73-year-old male with abdominal pain and signs of guarding suspicious for diverticulitis, possibly ruptured. Differential diagnosis also includes obstruction, volvulus, internal hernia, musculoskeletal etiology, pancreatitis, gastritis, gastroenteritis, colitis, among others. No signs of shingles on physical exam. Replace IV, give Dilaudid due to allergies. Zofran for nausea, IV fluid. Typical labs and CT of the abdomen and pelvis. May require surgical consult. Reevaluation(s) Time of Reevaluation #1: 06:33 Reevaluation #1: Discussed findings with patient, pain markedly improved. No signs of diverticul itis on CT but does have a left ureteral stone which certainly could explain the left abdominal and back pain. Discussed findings of a 6.9 mm left-sided stone. He will need urology follow-up but discuss that me calling them in the wee hours this morning will not change management coordinator. CT images have been pushed to align a. Referral has been placed. Patient is given contact information to call on Tuesday for in follow-up to try to schedule an appointment. It may be a week or so before they are able to work a min and that is okay. He is to drink lots of fluids. We will start Flomax and Toradol. He declines a narcotic prescription as he does not tolerate these well and honestly I agree. He will take Flomax daily to help reduce spasm. Alarm symptoms of infection, weakness, etc. were reviewed is indications to come back to the ED. He verbalizes understanding and agreement. Vital Signs Vital signs: Initial Vital Signs Temperature 97.7 F 08/21/23 03:38 Temperature Source Temporal Artery Scan 08/21/23 03:38 Pulse Rate 54 L 08/21/23 03:38 Respiratory Rate 16 08/21/23 03:38 Blood Pressure 156/80 H 08/21/23 03:38 Blood Pressure Mean 105 08/21/23 03:38 Blood Pressure Position Sitting 08/21/23 03:38 Pulse Oximetry 96 08/21/23 03:38 Oxygen Delivery Method Room Air 08/21/23 03:38 Vital Signs Temperature 97.7 F 08/21/23 03:38 Pulse Rate 54 L 08/21/23 03:38 Respiratory Rate 16 08/21/23 03:38 Blood Pressure 156/80 H 08/21/23 03:38 Pulse Oximetry 96 08/21/23 03:38 Oxygen Delivery Method Room Air 08/21/23 03:38 Temperature 97.7 F 08/21/23 03:38 Pulse Rate 43 L 08/21/23 05:01 Respiratory Rate 20 08/21/23 05:01 Blood Pressure 119/67 08/21/23 05:01 Pulse Oximetry 97 08/21/23 05:01 Oxygen Delivery Method Room Air 08/21/23 03:38 Medications Administered Medications: Discontinued Medications Generic Name Dose Route Start Last Admin Trade Name Freq PRN Reason Stop Dose Admin Hydromorphone HCl 0.5 mg 08/21/23 04:21 08/21/23 04:36 Hydromorphone 0.5 Mg/0.5 Ml Inj IVP 08/21/23 04:22 0.5 mg ONCE ONE Administration Sodium Chloride 1,000 mls @ 1,000 mls/hr 08/21/23 04:22 08/21/23 05:40 0.9 % Sodium Chloride 1000 Ml IV 08/21/23 05:21 Infused .Q1H GAURANG Infusion Ondansetron HCl 4 mg 08/21/23 04:21 08/21/23 04:35 Ondansetron 2 Mg/Ml Inj IVP 08/21/23 04:22 4 mg ONCE ONE Administration Medical Decision Making Lab Data Lab results reviewed: Yes I reviewed the patient's lab results Lab results narrative: Reassuring labs. Labs: Lab Results 08/21/23 Range/Units 04:30 WBC 6.40 (4.50-11.00) K/uL RBC 4.68 (4.30-5.90) m/uL Hgb 13.7 (13.5-17.5) gm/dL Hct 41.4 (37.0-53.0) % MCV 89 (80-100) fL MCH 29 (26-34) pg MCHC 33 (32-36) gm/dL RDW Coeff of [place] 12.5 (11.5-15.5) % Plt Count 227 (140-440) K/uL Neut % (Auto) 44.4 (42.0-72.0) % Lymph % (Auto) 34.2 (20-44) % [place] % (Auto) 11.1 H (0.0-11.0) % Eos % (Auto) 9.5 H (0.0-7.0) % Baso % (Auto) 0.6 (0.0-3.0) % Neut # (Auto) 2.84 (1.7-7.0) K/uL Lymph # (Auto) 2.19 (0.90-2.90) K/uL [place] # (Auto) 0.70 (0.00-0.90) K/UL Eos # (Auto) 0.60 H (0.00-0.50) K/uL Baso # (Auto) 0.04 (0.00-0.30) K/uL Abs Immat Gran (auto) 0.01 (0.00-0.30) K/uL Imm/Tot Granulo (auto) 0.2 % Sodium 140 (135-149) mmol/L Potassium 4.0 (3.6-5.1) mmol/L Chloride 107 (96-114) mmol/L Carbon Dioxide 27 (20-32) mmol/L Anion Gap 6 L (7-15) mEq/L BUN 23 (7-30) mg/dL Creatinine 0.9 (0.5-1.5) mg/dL Estimated Creat Clear 66.77 Estimated GFR 91 ml/min Glucose 98 (60-115) mg/dL Calcium 9.4 (8.4-10.6) mg/dL Total Bilirubin 0.6 (0.1-1.5) mg/dL AST 39 H (12-35) U/L ALT 28 (4-50) U/L Alkaline Phosphatase 71 (40-150) U/L C-Reactive Protein < 0.5 L (0.5-1.0) mg/dL Total Protein 6.8 (6.0-8.3) g/dL Albumin 4.3 (3.3-5.0) g/dL Lipase 88 (23-300) U/L Urine Color Yellow (Yellow) Urine Appearance Clear (Clear) Urine pH 6.0 (5.0-8.5) Ur Specific [place] >= 1.030 (1.000-1.030) Urine Protein Negative (Negative) Urine Glucose (UA) Negative (Negative) Urine Ketones Negative (Negative) Urine Blood Negative (Negative) Urine Nitrite Negative (Negative) Urine Bilirubin Negative (Negative) Urine Urobilinogen 0.2 (0.2-1.0) Ur Leukocyte Esterase Negative (Negative) Imaging Data CT scan - abdomen: Attestation: I have reviewed the pertinent imaging results. My impression: No obvious diverticulitis, colitis, perforation or obstruction. Does seem to have left-sided hydronephrosis and hydroureter with what looks to be a good size stone in the proximal ureter. Radiologist's impression: Impression: Left-sided hydronephrosis with demonstration of a 6.9 millimeter faintly calcified calculus just at the left ureteropelvic junction. Distal colonic diverticulosis with somewhat decompressed appearance of the colon which may obscure low-grade inflammatory change. Double Hepatomegaly and hepatic steatosis without focal abnormality. Discharge Plan Discharge Clinical Impression: Left ureteral calculus Patient Disposition: Home w/ Parent or Adult Additional Instructions: As we discussed, there are no signs of diverticulitis today which is great. You do have a kidney stone in your left proximal ureter which is up near the kidney which would certainly explain the area of pain. There are no signs of infection or complication with this thus far. The stone is 6.9 mm which is typically too large to pass without help. Because of this, you will need to see a urologist. There are no signs of any emergent reason to call them in the wee hours on the weekend, therefore I have placed a referral but will also need for you to call on Tuesday morning. Their office number is [phone]. Please tell them that you were seen in the emergency department and have a 6.9 mm left kidney stone. The CT images have been pushed up to align a for them to review and that you should be seen when they are able in the next week or so. For pain, and given you prescription for Toradol, you may take this up to every 6 hours. It is important you drink lots of fluids. I am starting you on Flomax, a medicine that does help dilate open the urinary passages slightly but also I find that it tends to cut down on spasm. Take this every day or until the stones pass or you are directed to stop by the urologist. The urologist may need to do additional procedures such as lithotripsy and or a stent. They will discuss these potential treatment options further with you. Though unlikely, infection may set in. If you are having high fever, significant burning with urination or getting very weak, you should come into the emergency department. The pain may start to migrate more to the mid abdomen or down towards the pelvis as the stone moves. You may continue to work as you are able and also use Tylenol 1000 mg every 6 hours for pain. Per our discussion, the stronger pain medicines tend to cause more side effects than benefit for you, I will not prescribe these also. Activity Level: Activity as Tolerated Discharge Diet: Regular Prescriptions: New ketorolac 10 mg tablet 10 mg PO Q6H PRN (Reason: pain) 1 Days Qty: 20 0RF tamsulosin [Flomax] 0.4 mg capsule 0.4 mg PO DAILY Qty: 30 2RF No Action cholecalciferol (vitamin D3) 50 mcg (2,000 unit) tablet 2,000 unit PO DAILY [id number] oil-vit D3 [Fish Oil-Vit D3] 300-1,000-1,000 mg-mg-unit capsule PO PreserVision AREDS 2 Plus MV 200 mcg-15 mcg- 5 mg-1 mg capsule PO NAC+zinc K2+D3 quercetain & sarracenia PO QDAY olopatadine [Pataday Once Daily Relief] 0.2 % drops 1 drp ophthalmic (eye) QDAY fluticasone propionate 50 mcg/actuation spray,suspension 1 spray intranasal QDAY PRN Rx Instructions: administer into each nostril Follow Up/Referrals: Cirilo Giron MD [Referring] - 7 Days (first available urology, any provider. 6.9mm left ureteral stone) Silvano Lindsay MD [Primary Care Provider] - Stand Alone Forms: [employer] Info Instructions
[2023-08-21] MEDS: ONDANSETRON 2 MG/ML inj 4 MG IVP (04:35)
[2023-08-21] MEDS: HYDROmorphone 0.5 mg/0.5 ml inj IVP (04:36)
[2023-08-21] MEDS: 0.9 % SODIUM CHLORIDE 1000 ml 1,000 ML IV (04:36)
[2023-08-21 04:39] VITALS: O2SAT 99
[2023-08-21 04:39] LABS: Basophils Absolute Auto 0.04 K/uL (0.00-0.30); Basophils Percent Auto 0.6 % (0.0-3.0); Eosinophils Percent Auto 9.5 % (0.0-7.0); Hematocrit 41.4 % (37.0-53.0); Hemoglobin* 13.7 gm/dL (13.5-17.5); Immature Granulocytes Abs Auto 0.01 K/uL (0.00-0.30); Immature Granulocytes Pct Auto 0.2 %; Lymphocytes Absolute Auto 2.19 K/uL (0.90-2.90); Lymphocytes Percent Auto 34.2 % (20-44); Mean Corpuscular HGB Conc 33 gm/dL (32-36); Mean Corpuscular Hemoglobin 29 pg (26-34); Mean Corpuscular Volume 89 fL (80-100); Monocytes Percent Auto 11.1 % (0.0-11.0); Neutrophils Absolute Auto 2.84 K/uL (1.7-7.0); Neutrophils Percent Auto 44.4 % (42.0-72.0); Platelet Count* 227 K/uL (140-440); RDW Coefficient of Variation % 12.5 % (11.5-15.5); Red Blood Count 4.68 m/uL (4.30-5.90)
[2023-08-21 04:40] LABS: Appearance Urine Clear (Clear); Bilirubin Urine Negative (Negative); Blood Urine Negative (Negative); Color Urine Yellow (Yellow); Glucose Urine Negative (Negative); Ketones Urine Negative (Negative); Leukocyte Esterase Urine Negative (Negative); Nitrite Urine Negative (Negative); Protein Urine Negative (Negative); Slide Review Reflex No; Specific Gravity Urine >= 1.030 (1.000-1.030); Urobilinogen Urine 0.2 (0.2-1.0)
[2023-08-21 04:47] LABS: Albumin* 4.3 g/dL (3.3-5.0); Chloride* 107 mmol/L (96-114); Sodium* 140 mmol/L (135-149)
[2023-08-21 04:50] LABS: Anion Gap 6 mEq/L (7-15); Aspartate Amino Transferase* 39 U/L (12-35); Bilirubin Total* 0.6 mg/dL (0.1-1.5); Carbon Dioxide* 27 mmol/L (20-32); Creatinine* 0.9 mg/dL (0.5-1.5); Est. Creatinine Clearance* 66.77; Estimated Glomerular Filt Rate 91 ml/min; Total Protein* 6.8 g/dL (6.0-8.3)
[2023-08-21 04:51] LABS: Alanine Aminotransferase* 28 U/L (4-50); Alkaline Phosphatase* 71 U/L (40-150); Blood Urea Nitrogen* 23 mg/dL (7-30); Calcium* 9.4 mg/dL (8.4-10.6); Glucose* 98 mg/dL (60-115); Lipase* 88 U/L (23-300)
[2023-08-21 04:59] LABS: C Reactive Protein* < 0.5 mg/dL (0.5-1.0)
[2023-08-21 05:01] VITALS: BP 119/67; PULSE 43; RESP 20; O2SAT 97
[2023-08-21 06:35] VITALS: TEMP 36.5
[2023-08-21] MEDS: TAMSULOSIN HCL 0.4 MG CAPSULE PO (06:35)
[2023-08-21] MEDS: KETOROLAC 10 MG TABLET PO (06:35)
[2023-08-21 06:41] VITALS: BP 135/70; PULSE 60; RESP 20; TEMP 36.5; O2SAT 97
[2023-08-21 06:42] VITALS: BP 135/70; PULSE 60; RESP 20; TEMP 36.5
== END 2023-08-21 06:42 | disposition home or self-care (01) ==
PROVIDERS: Emergency Provider Family Medicine; PCP Family Medicine
DX: N20.1 Calculus of ureter (principal)
CPT/HCPCS: 36415; 74177; 80053; 81003; 83690; 85025; 86140; 94761; 96374; 96375; 99284; A9270; J1170; J2405; J7030; Q9967

== ENCOUNTER 2023-09-22 07:42 | Outpatient (CLI) | payer MEDICARE, SELFPAY ==
--- OUTSIDE RECORDS SUMMARY | 2023-09-22 07:44 | XMS_ITS | Clinical Summary ---
Author Organization [employer] [facility] [facility] Address [place], [place] [address] Care Team Providers Care Media Account Executive Name Role Phone Daron Keane MD Primary Care Provider [phone]- [phone] Allergies Active Allergy Reactions Criticality Noted Date Comments Morphine Vomiting 02/22/2021 n/v Opioids - Morphine Analogues Nausea And Vomiting 04/09/2014 Medications Medication Sig Dispensed Refills Start Date End Date Status vit C,W-It-gkbey-lutein- zeaxan (PRESERVISION AREDS-2) capsule Take 1 capsule by mouth once daily. 0 02/14/2019 Active Ihyla-5-QCK-EPA-Fish Oil 1,000 mg (120 mg-180 mg) cap Take 1 capsule by mouth. 0 02/14/2019 Active diclofenac topical (VOLTAREN) 1 % gelIndications:Arthr algia of hip, unspecified laterality Apply 2 g topically to affected area(s) 4 times daily. 100 g 04/21/2019 Active zinc 50 mg tablet Take 1 tablet by mouth once daily. 0 04/15/2020 Active medication order composer Quercetin 0 04/15/2020 Active cholecalciferol (VITAMIN D3) 2,000 unit capsuleIndications:V itamin D deficiency Take 1 Capsule (2,000 units) by mouth once daily. 90 Capsule 3 05/27/2021 Active sennosides (SENNA) 8.6 mg tabletIndications:Ab dominal pain, generalized Take 1 Tablet (8.6 mg) by mouth two times daily. 180 Tablet 3 07/05/2022 Active Active Problems Problem Noted Date Diagnosed Date Biliary colic 07/05/2022 07/05/2022 Cerebral ischemia 07/05/2022 07/05/2022 Cholelithiasis 07/05/2022 07/05/2022 COVID 02/21/2021 BPH without urinary obstruction 02/13/2018 Acromegaly 01/31/2017 Overview: Diagnosed at age 29. Had pituitary surgery. Melanoma of skin 01/31/2017 Overview: Left chest wall early - removed 01/2017 Immunizations Name Administration Dates Next Due Td (Age >=7 Years) 02/11/2003 Tdap 07/15/2021 Social History Tobacco Use Types Packs/Day Years Used Date Smoking Tobacco: Never Smokeless Tobacco: Never Tobacco Cessation:Counseling Given: Yes Alcohol Use Standard Drinks/Week Comments Yes 0 (1 standard drink = 0.6 oz pur e alcohol) once per month PHQ-2 Answer Date Recorded PHQ-2 TOTAL SCORE 0 07/28/2022 Social Connections Answer Date Recorded Frequency of Communication with Friends and Fami ly Not on file 07/05/2022 Financial Resource Strain Answer Date R ecorded Difficulty of Paying Living Expenses 3 07/03/2021 Difficulty of Paying Living Expenses Not on file 07/03/2021 Food Insecurity Answer Date Recorded Worried About Running Out of Food in the Last Ye ar 1 07/03/2021 Transportation Needs Answer Date Record ed Lack of Transportation (Medical) 1 07/03/2021 Housing Stability Answer Date Recorded Unable to Pay for Housing in the Last Year 1 07/03/2021 Sex and Gender Information Value Date Recorded Sex Assigned at Male 03/10/2021 11:40 AM PRODUCT INSPECTION COORDINATOR Gender Identity Male 07/26/2022 9:54 AM CDT Sexual Orientation Straight 07/26/2022 9: 54 AM CDT Obstetrics History Last Filed Vital Signs Vital Sign Reading Time Taken Comments Blood Pressure 126/80 07/28/2022 3:16 PM CDT Pulse 70 07/28/2022 3:16 PM CDT Temperature 36.8 ??C (98.3 ??F) 02/25/2021 8:43 AM CS T Respiratory Rate 16 02/25/2021 11:00 AM PRODUCT INSPECTION COORDINATOR Oxygen Saturation 98% 07/28/2022 3:16 PM CDT Inhaled Oxygen Concentration - - Weight 98.1 kg (216 lb 3.2 oz) 07/28/2022 3:16 P M CDT Height 173 cm (5' 8.11) 07/28/2022 3:16 PM CDT Body Mass Index 32.77 07/28/2022 3:16 PM CDT Plan of Treatment Health Maintenance Due Date Last Done Comments Zoster (shingles) series for age 50+ (1 of 2) 2001 Pneumococcal series for age 65+ (1 of 1 - PCV) 01/14/2016 COVID-19 vaccine series (2022-24 season) 2022 Fecal testing sDNA-FIT (Cologuard) for age 45-75 04/08/2023 04/08/2020, 03/01/2017 BMI (ht and wt on same day) for age 18+ 07/29/2023 07/28/2022, 05/26/2021, 02/14/2019, Additional history exists Depression screening for age 12+ 07/29/2023 07/28/2022, 05/26/2021, 04/15/2020, Additional history exists Medicare Wellness for age 65+ 07/29/2023, 05/26/2021, 04/15/2020, Additional history exists Influenza for age 65+ 11/13/2023 Lipids for age 45-75 07/29/2027 07/28/2022, 05/26/2021, 05/01/2020, Additional history exists Tetanus booster 07/16/2031 07/15/2021, 02/11/2003 Fecal testing non-DNA (FIT,FOBT,iFOBT) for age 45-75 Discontinued 03/01/2017 (Completed o [facility]nside of [facility]) Hepatitis C screening for ag e 18-79 Completed 05/01/2020 Tdap Completed 07/15/2021 Procedures Procedure Name Priority Date/Time Associated Diagnosis Comments LIPID PANEL W REFLEX MEASURED LDL Routine 07/28/2022 4:13 PM CDT Mixed hyperlipidemia ANTI HCV Routine 05/01/2020 10:35 AM PRODUCT INSPECTION COORDINATOR Need for hepatitis C screening test SCAN-FECAL TEST DNA (COLOGUARD) 04/08/2020 12:00 AM PRODUCT INSPECTION COORDINATOR from Last 3 Months or Most Recently Relevant to Health Maintenance Results * (ABNORMAL) LIPID PANEL W REFLEX MEASURED LDL (07/28/2022 4:13 PM CDT) CHOLESTEROL,TOTAL 236(H) 100 - 199 mg/dL 07/29/2022 3:44 PM CDT [facility] Comment: Cholesterol, Total Reference Ranges Desirable <200 mg/dL Borderline 200-239 mg/dL High >=240 mg/dL TRIGLYCERIDES 378(H) <150 mg/dL 07/29/2022 3:44 PM CDT [facility] HDL CHOLESTEROL 32(L) >40 mg/dL 3 3:44 PM CDT [facility] NON-HDL CHOLESTEROL 204(H) <145 mg/dl 07/29/2022 3:44 PM CDT [facility] CHOL/HDL RATIO 7.38(H) <4.50 07/29/2022 3:44 PM CDT [facility] LDL CHOLESTEROL 128 <=130 mg/dL 07/29/2022 3:44 PM CDT [facility] VLDL CHOLESTEROL 76(H) <=30 mg/dL 07/29/2022 3:44 PM CDT [facility] PROVIDER ORDERED STATUS RANDOM 07/29/2022 3:44 PM CDT [facility] Blood BLOOD SPECIMEN / Unknown Venipuncture / Unknown 07/28/2022 4:13 PM CDT 07/28/2022 4:13 PM CDT Ammon Tuttle DO CHEMISTRY [facility] [address] [place] [address], * ANTI HCV (05/01/2020 10:35 AM PRODUCT INSPECTION COORDINATOR) HEPATITIS C ANTIBODY Non-React sixto Non-React sixto 05/01/2020 4:22 PM PRODUCT INSPECTION COORDINATOR [facility] Comment:Antibodies to HCV no t detected; does not exclude the possibility of exposure to HCV. Blood BLOOD SPECIMEN / Unknown Venipuncture / Unknown 05/01/2020 10:35 AM PRODUCT INSPECTION COORDINATOR 05/01/2020 10:37 AM PRODUCT INSPECTION COORDINATOR Daron Keane MD SEND OUTS [facility] 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
--- OUTSIDE RECORDS SUMMARY | 2023-09-22 07:44 | XMS_ITS | Data Portability ---
Author Organization [place] [facility], [facility] Address [address] [place] [address] Assessment No assessment recorded. Plan of Treatment Reminders Order Date Submit Date Provider Last Modified By Organization Details Last Modified Time Details Appointments None recorded. Lab urinalysis , dipstick 2023 024 [facility], [address], [place], [address], 16:03:21 Referral None recorded. Procedures None recorded. Surgeries None recorded. Imaging CT, abdomen + pelvis, w/o contrast - no prev [address] [facility] , [address] [place], [address], 12:54:53 Medication Orders None recorded. Patient TargetsNo targets recorded. Patient InstructionsNo instructions recorded. Reason for Referral None Reported. Results Created Date Observation Date Name Description Value Unit Range Abnormal Flag LastModifiedBy Organization Detail LastModifiedTime 09/05/1909/05/2023 urina lysis , dipst ick BLOOD Negati ve Not Available [facility] [address], [place], [address], 09/05/2023 16:02:44 09/05/19 24 09/05/2023 urina lysis , dipst ick BILIRUBIN Negati ve Not Available [facility] [address], [place], [address], 09/05/2023 16:02:44 09/05/19 24 09/05/2023 urina lysis , dipst ick UROBILINOGEN 0.2 mg/dL (Norm) Not Available [facility] [address], [place], [address], 09/05/2023 16:02:44 09/05/19 24 09/05/2023 urina lysis , dipst ick KETONES Negati ve Not Available [facility] [address], [place], [address], 09/05/2023 16:02:44 09/05/19 24 09/05/2023 urina lysis , dipst ick PROTEIN Negati ve Not Available [facility] [address], [place], [address], 09/05/2023 16:02:44 09/05/19 24 09/05/2023 urina lysis , dipst ick NITRITES Negati ve Not Available [facility] [address], [place], [address], 09/05/2023 16:02:44 09/05/19 24 09/05/2023 urina lysis , dipst ick GLUCOSE Negati ve Not Available [facility] [address], [place], [address], 09/05/2023 16:02:44 09/05/19 24 09/05/2023 urina lysis , dipst ick p.H. 6.5 Not Available [facility] [address], [place], [address], 09/05/2023 16:02:44 09/05/19 24 09/05/2023 urina lysis , dipst ick S.G. (Specific Warren) 1.015 Not Available [facility] [address], [place], [address], 09/05/2023 16:02:44 09/05/19 24 09/05/2023 urina lysis , dipst ick LEUKOCYTES Negati ve Not Available [facility] [address], [place], [address], 09/05/2023 16:02:44 09/07/19 24 09/07/2023 CT, abdom en + pelvi s, w/o contr ast PHYSIC STEPHANIE ALERT EXAM: CT, ABDOME N + PELVIS , W/O CONTRA ST LOCATI ON: [place] [facility] DATE: 024 INDICA TION: Calcul us of kidney . COMPAR KATIE: None. TECHNI QUE: CT scan of the abdome n and pelvis was perfor med withou t IV contra st. Multip lanar reform ats were obtain ed. Dose reduct ion techni ques were used. CONTRA ST: None. FINDIN GS: LOWER CHEST: Partia lly visual ized irregu lar right lower lobe medial subple ural nodule measur ing 1.8 cm (/). Left lower lobe 0.3 cm fissur al nodule . HEPATO BILIAR Y: Cholec ystect imani. PANCRE : Normal . SPLEEN : Normal . ADRENA L GLANDS : Normal . KIDNEY S/BLAD BREANNA: No renal or ureter al calcul us. Parape lvic cysts; no follow -up necess liz. Urinar y bladde r is unrema rkable . BOWEL: No obstru ction or inflam matory change . LYMPH NODES: Normal . VASCUL ATURE: Unrema rkable . PELVIC ORGANS : No pelvic mass. MUSCUL OSKELE DARON: Bilate ral L5 pars defect s. Degene rative change s of the spine. No aggres sive osseou s lesion . IMPRES GUS: 1. Partia lly visual ized right medial lower lobe subple ural 1.8 cm nodule . Neopla sm is not exclud ed. Recomm end dedica tomy CT chest with contra st. 2. No renal or ureter al stone. No collec ting system dilata tion. 3. Coloni c divert icula. This report was electr onical ly interp reted by: Lea christianson MD on 2023 at 11:52 [facility] [address], [place], [address], 09/13/2023 15:48:56 Result Notes None recorded. Procedures Surgical History Date Name Laterality Status Provider Name and Address Organization Details Recorded Time 06/13/19 24 colonoscopy completed Cirilo Giron MD [address] [place] [address],[address], [address], [facility] 09/05/2023 16:00:32 03/14/19 22 cholecystectomy completed Cirilo Giron MD [address] [place] [address],[address], [address], [facility] 09/05/2023 16:00:05 Imaging Results Imaging Date Name Status LastModified by Organiz ation Details LastModified Time 09/07/2023 CT, abdomen + pelvis, w/o contrast completed [facility] [address], [place], [address], 09/13/2023 15:48:56 Procedure Notes None recorded. Medical Equipment None Reported. Allergies No known drug allergies Medications Name Sig Start Date Stop Date Status Note LastModified by Organization Details LastModified Time amoxicillin 500 mg capsule TAKE 1 CAPSULE BY MOUTH EVERY 8 HOURS UNTIL GONE 09/04 completed Not Available Not Available Not Available metronidazo le 500 mg tablet TAKE ONE TABLET BY MOUTH THREE TIMES A DAY 09/04 completed Not Available Not Available Not Available ciprofloxac in 500 mg tablet TAKE ONE-HALF TABLET BY MOUTH TWICE A DAY 09/04 completed Not Available Not Available Not Available ketorolac 10 mg tablet TAKE ONE TABLET BY MOUTH EVERY 6 HOURS NEEDED FOR PAIN FOR ONE DAY active Not Available Not Available No t Available ciclopirox 8 % topical solution APPLY TO AFFECTED AREA(S) OF THE RIGHT GREAT TOE ONCE NIGHTLY UNTIL RESOLVED 09/04 completed Not Available Not Available Not Available tamsulosin 0.4 mg capsule TAKE ONE CAPSULE BY MOUTH EVERY DAY 09/04 completed Not Available Not Available Not Available amoxicillin 875 mg-potassiu m clavulanate 125 mg tablet 09/04 completed Not Available Not Available Not Available Fish Oil active Not Available Not Avai lable Not Available ICaps AREDS active Not Available Not A vailable Not Available Vitals Date Recorded Body height Body mass index (BMI) Body weight Provider Name and Address Organization Details Last Updated DateTime 09/05/2023 175.26 cm 31.3 kg/m2 19894.58 g Cirilo Giron MD [address] [place] [address],[address], [address] 09/05/2023 15:54:47 Social History Question Answer Notes LastModified by Organizat ion Details LastModified Time Tobacco Smoking Status Never Smoker Cirilo Giron MD [address] [place] [address],[address], [address], [facility] 09/05/2023 16:01:22 What Is Your Level Of Alcohol Consumption? Occasional Information not available 09/05/2023 What Is Your Level Of Caffeine Consumption? Moderate Information not available 09/05/2023 Race White Information no t available 09/05/2023 Ethnicity Not / Information not available 09/05/2023 Preferred Language Slovak Information not available 09/05/2023 What Was The Date Of Your Most Recent Tobacco Screening? 09/05/2023 Information not available 09/05/2023 Sex: Unknown Functional Status None recorded. Mental Status None recorded. Family History Relationship Description Onset Age of this Age Resolved Age Notes Father No current problems or disability Mother No current problems or disability Medical History Condition Response Other Heart Disease Immunizations Vaccine Type Date Status Provider Name and Address Organization Details Recorded Time Tdap 07/15/2021 completed Cirilo Giron MD [address] [place] [address],[address], [address], [facility] 09/05/2023 15:55:02 Td (adult), 2 Lf tetanus toxoid, preservative free, adsorbed 02/11/2003 completed Cirilo Giron MD [address] [place] [address],[address], [address], [facility] 09/05/2023 15:55:02 Past Encounters Encounter ID Performer Location Encounter Start Date Encounter Closed Date Diagnosis/Indication Diagnosis SNOMED-CT Code [id number] Cirilo Giron MD [facility] [address] [phone] 09/05/2023 15:29:44 09/06/2023 15:22:17 Kidney stone [id number] Health Concerns Section Related Observation LastModified by Organization Detai ls LastModified Time None Recorded Concern Status LastModified by Organization Details LastModified Time None Recorded Advance Directives Directive None Recorded Payers Encounter Date Sequence Insurance Name Policy Number Policy Wilkinson Covered Member ID Wilkinson Member ID Guarantor Name 09/05/2023 1 [facility] (PP[facility]) [id number] Willie Reddy [id number] Willie Reddy Notes Date Note Type Note Provider Name and Address Organization Details Recorded Time 09/05/2023 text/html HPI Notes: 73 yo male with history of TIA, melanoma, hyperlipidemia, ANTHONY, and BPH - developed Left flank pain on 08/21/23 after 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 [facility] - no blood or LE. CT scan revealed a feint 6 mm stone at the Left UPJ. He denies abdominal or flank pain over the past 10-14 days. He voids every 1-2 hours during the day and 2-3x/night. He denies hesitancy, weak stream, urgency or dysuria. He is on Flomax 0.4 mg daily. - [facility]A - no Blood - no LE __ CT scan (08/21/23) - Left - 6 mm feint stone (UPJ) - + mild hydronephrosis Cirilo Giron MD [address], [place], [address], [facility] 09/05/2023 18:31:12
--- NOTE | 2023-09-22 08:00 | CRLHL7_ITS ---
For Patients: As a result of the Century Cures Act, medical imaging exams and procedure reports are released immediately into your electronic medical record. You may view this report before your referring provider. If you have questions, please contact your health care provider. Indication: ABNORMAL FINDINGS ON DIAGNOSTIC IMAGING Technique: CT chest with IV contrast, 75 mL Isovue 370 Comparison: CT abdomen/pelvis on August 21, 2023 Findings: No thyroid nodules. No thoracic lymphadenopathy. The heart is normal in size. No pericardial effusion. No coronary artery calcifications. The thoracic aorta and pulmonary artery are normal in caliber. There is no central pulmonary embolism. No focal airspace consolidation, pleural effusion, or pneumothorax. There are few small sub 4 millimeter solid pulmonary nodules in the right lung, particularly the right middle lobe (series number 3, image 58), likely benign. No suspicious pulmonary nodules or masses. Trace dependent and bibasilar atelectatic changes. The visualized upper abdomen is unremarkable. The soft tissues are unremarkable. There is some mild degenerative changes seen throughout the spine. No suspicious osseous lesions. Impression: 1. No CT evidence of an acute process involving the thorax. 2. There are few sub 4 millimeter, solid pulmonary nodules in the right lung, likely benign post infectious/inflammatory nodules. Recommend repeat CT chest in 1 year if patient is at high risk for developing lung malignancy; otherwise, no routine follow-up imaging is needed. Please note that all CT scans at this facility use dose modulation, iterative reconstruction, and/or weight-based dosing when appropriate to reduce radiation dose to as low as reasonably achievable. Dictated by Ricky Aggarwal MD @ 09/23/2023 12:58:45 PM (Electronically Signed)
[2023-09-22 08:23] LABS: Creatinine* 0.9 mg/dL (0.5-1.5); Estimated Glomerular Filt Rate 91 ml/min
== END 2023-09-22 07:43 | disposition home or self-care (01) ==
LOC: CT 07:42
PROVIDERS: PCP Family Medicine; Visit Provider Family Medicine
DX: R93.5 Abnormal findings on diagnostic imaging of other abdominal regions, including retroperitoneum (principal); R91.8 Other nonspecific abnormal finding of lung field
CPT/HCPCS: 36415; 71260; 82565; Q9967

== ENCOUNTER 2023-10-06 10:00 | Outpatient (CLI) | payer MEDICARE, SELFPAY ==
--- OUTSIDE RECORDS SUMMARY | 2023-10-10 10:27 | XMS_ITS | Clinical Summary ---
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 0 02/14/2019 Active Mjxlt-0-BZO-EPA-Fish Oil 1,000 mg (120 mg-180 mg) cap [...] Sex Assigned at Male 03/10/2021 11:40 AM GUIDE PLANT Gender Identity Male 07/26/2022 9:54 AM CDT Sexual Orientation Straight 07/26/2022 9: 54 AM CDT Obstetrics History Last Filed Vital Signs Vital Sign Reading Time Taken Comments Blood Pressure 126/80 07/28/2022 3:16 PM CDT Pulse 70 07/28/2022 3:16 PM CDT Temperature 36.8 ??C (98.3 ??F) 02/25/2021 8:43 AM CS T Respiratory Rate 16 02/25/2021 11:00 AM GUIDE PLANT Oxygen Saturation 98% 07/28/2022 3:16 PM CDT [...] 45-75 Discontinued 03/01/2017 (Completed [facility]) Hepatitis C screening for ag e 18-79 Completed 05/01/2020 Tdap Completed 07/15/2021 Procedures Procedure Name Priority Date/Time Associated Diagnosis Comments LIPID PANEL W REFLEX MEASURED LDL Routine 07/28/2022 4:13 PM CDT Mixed hyperlipidemia ANTI HCV Routine 05/01/2020 10:35 AM GUIDE PLANT Need for hepatitis C screening test SCAN-FECAL TEST DNA (COLOGUARD) 04/08/2020 12:00 AM GUIDE PLANT from Last 3 Months or Most Recently Relevant to Health Maintenance Results * (ABNORMAL) LIPID PANEL W REFLEX MEASURED LDL (07/28/2022 4:13 PM CDT) CHOLESTEROL,TOTAL 236(H) 100 - 199 mg/dL 07/29/2022 3:44 PM CDT [facility] Comment: Cholesterol, Total Reference Ranges Desirable <200 mg/dL Borderline 200-239 mg/dL High >=240 mg/dL TRIGLYCERIDES 378(H) <150 mg/dL 07/29/2022 3:44 PM CDT [facility] HDL CHOLESTEROL 32(L) >40 mg/dL 3 3:44 PM CDT [facility] NON-HDL CHOLESTEROL 204(H) <145 mg/dl 07/29/2022 3:44 PM CDT [facility] CHOL/HDL RATIO 7.38(H) <4.50 07/29/2022 3:44 PM CDT [facility] LDL CHOLESTEROL 128 <=130 mg/dL 07/29/2022 3:44 PM CDT [facility] VLDL CHOLESTEROL 76(H) <=30 mg/dL 07/29/2022 3:44 PM CDT [facility] PROVIDER ORDERED STATUS RANDOM 07/29/2022 3:44 PM CDT [facility] Blood BLOOD SPECIMEN / Unknown Venipuncture / Unknown 07/28/2022 4:13 PM CDT 07/28/2022 4:13 PM CDT Ammon Tuttle DO CHEMISTRY [facility] [address] [place] [address], * ANTI HCV (05/01/2020 10:35 AM GUIDE PLANT) HEPATITIS C ANTIBODY Non-React sixto Non-React sixto 05/01/2020 4:22 PM GUIDE PLANT [facility] Comment:Antibodies to HCV no t detected; does not exclude the possibility of exposure to HCV. Blood BLOOD SPECIMEN / Unknown Venipuncture / Unknown 05/01/2020 10:35 AM GUIDE PLANT 05/01/2020 10:37 AM GUIDE PLANT Darno Keane MD SEND OUTS [facility] 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
== END 2023-10-06 10:01 | disposition home or self-care (01) ==
LOC: NFLDREF 10-10 10:20
PROVIDERS: PCP Family Medicine; Referring Provider Family Medicine; Visit Provider Family Medicine
DX: Z13.88 Encounter for screening for disorder due to exposure to contaminants (principal)
CPT/HCPCS: 83655

== ENCOUNTER 2024-04-04 15:48 | Outpatient (CLI) | payer MEDICARE, SELFPAY ==
--- NOTE | 2024-04-04 16:00 | CRLHL7_ITS ---
For Patients: As a result of the Century Cures Act, medical imaging exams and procedure reports are released immediately into your electronic medical record. You may view this report before your referring provider. If you have questions, please contact your health care provider. Indication: Chronic sinusitis Technique: CT of the paranasal sinuses without contrast. Coronal and sagittal reformatted images. Bone and soft tissue algorithms. Comparison: None. Findings: Frontal sinuses: Mild mucosal thickening in the frontal sinuses. Pneumatization of the Mercedes barbi. Ethmoid air cells: Minimal mucosal thickening in the right ethmoid air cells. The left ethmoid air cells are clear. Asymmetric depth of the olfactory fossa, measuring 6 mm on the left side and 9 mm on the right side (Keros 3. Sphenoid sinuses: Mild polypoid mucosal thickening in the sphenoid sinuses bilaterally. No optic canal or carotid canal dehiscence. Maxillary sinuses: The maxillary sinuses are clear. The osteomeatal units are clear. Nasal cavity: The nasal septum is slightly deviated to the left. No luh bullosa. No paradoxical turbinates. Skullbase, maxilla, TMJ: No lytic or blastic osseous lesions. No periapical tooth lucencies. Mastoid air cells are clear. Incidental hyperostosis maxillarus internus. There is a metallic linear structure in the posterior sella, correlation with surgical history recommended. Right TMJ degenerative changes. Orbital contents: Unremarkable Imaged intracranial contents: Unremarkable Imaged soft tissues structures: Unremarkable IMPRESSION: 1. Mild polypoid mucosal thickening along the floor of the left maxillary sinus. Small retention cyst versus polyp in the right ethmoid air cells. Mild polypoid mucosal thickening in the sphenoid sinuses mild mucosal thickening of the frontal sinuses. 2. The nasal septum is slightly deviated to the left 3. There is a metallic linear structure in the posterior sella, correlation with surgical history recommended. Please note that all CT scans at this facility use dose modulation, iterative reconstruction, and/or weight-based dosing when appropriate to reduce radiation dose to as low as reasonably achievable. Dictated by Silvano Ace MD @ 04/05/2024 3:38:33 PM (Electronically Signed)
== END 2024-04-04 15:49 | disposition home or self-care (01) ==
LOC: CT 15:49
PROVIDERS: PCP Family Medicine; Visit Provider Otolaryngology
DX: J32.9 Chronic sinusitis, unspecified (principal); J32.0 Chronic maxillary sinusitis; J34.2 Deviated nasal septum
CPT/HCPCS: 70486

== ENCOUNTER 2024-08-20 14:49 | Outpatient (CLI) | payer MEDICARE, SELFPAY | END 2024-08-20 14:50 | disposition home or self-care (01) | PROVIDERS: PCP Family Medicine; Visit Provider Family Medicine | DX: Z01.818 Encounter for other preprocedural examination (principal); I44.7 Left bundle-branch block, unspecified | CPT/HCPCS: 80048; 85025 ==